=== PATIENT | female | born 1940 | race Caucasian/White ===

== ENCOUNTER 2018-08-28 13:06 | Emergency (ER) | payer OTHER ==
[2018-08-28] MEDS ORDERED: IBUPROFEN 600 MG TAB PO ONE ×2 (13:29)
[2018-08-28] MEDS ORDERED: IBUPROFEN 200 MG TAB PO ONE ×2 (13:32→13:34)
--- NOTE | 2018-08-28 13:33 | EDPHY ---
H & P Time Seen by Provider: 08/28/18 13:27 HPI/ROS: This patient fell on outstretched hand left side with wrist injury-pain to distal radius since she fell at [facility] 30 min prior to arrival. She explains that she was sitting on a chair and stood up abruptly up, her feet got tangled and she describes a mechanical fall. She denies any other injuries per besides the wrist. She describes 6/10 pain to that wrist a goes up to 8/10 with movement. No other exacerbating factors. She is accompanied by family member who drove her here for evaluation. She she has not had any analgesic or NSAID medications prior to arrival. ROS: Neuro: She did not strike her head. No numbness or tingling the affected extremity Musculoskeletal: No other extremity injuries Integumentary: No lacerations abrasions Pulmonary: No chest wall pain GI: No nausea vomiting or abdominal pain 7 point review of symptoms is performed and otherwise negative with exception of pertinent positives and negatives listed in HPI and ROS Smoking Status: Never smoked Physical Exam: Physical Exam Vital signs are normal. General: No acute distress HEENT: Atraumatic. Neck: Nontender Eyes: Pupils equal and react to light. Extraocular motions are intact. Lungs: No respiratory distress. No chest wall tenderness Cardiac: Brisk capillary refill is intact throughout. Pulses are 2+ and symmetric in the affected extremity. Skin: No rash or pallor. Extremities: Atraumatic normal except for left wrist left wrist: Patient has distal radial deformity and tenderness. No hand swelling or tenderness. Neuro: Alert and oriented x3 with no sensorimotor deficits in the affected extremity. Initial differential diagnosis: Distal radius fracture, scaphoid fracture, wrist sprain, traumatic hematoma Constitutional: Initial Vital Signs Heart Rate 56 L 08/28/18 13:13 Respiratory Rate 16 08/28/18 13:13 Blood Pressure 151/63 H 08/28/18 13:13 O2 Sat (%) 95 08/28/18 13:13 O2 Delivery Mode Room Air Allergies/Adverse Reactions: No Known Allergies Allergy (Unverified 08/28/18 13:19) Home Medications: Medication Instructions Recorded Lisinopril 08/28/18 Propranolol HCl 08/28/18 traMADol [Ultram 50 mg (*)] 50 - 100 mg PO Q4 PRN #12 tab 08/28/18 MDM/Departure - MDM Diagnostics: Wrist x-rays: Colles fracture with dorsal angulation by my interpretation nondisplaced intra-articular component to the radial fracture. Positive associated ulnar styloid fracture. Imaging Results: Imaging Impressions Wrist X-Ray 08/28/18 13:23 Impression: 1. Acute angulated impacted and displaced intra-articular distal radius fracture. 2. Minimally displaced acute ulnar styloid fracture. Imaging: I viewed and interpreted images myself Medications Given: Discontinued Medications Ibuprofen (Motrin) 400 mg PO EDNOW ONE Stop: 08/28/18 13:35 Last Admin: 08/28/18 13:35 Dose: 400 mg ED Course/Re-evaluation: Course: Ice and ibuprofen with partial relief I spoke with Otf, mid-level practitioner with Dr. Bedoya, orthopedic physician on-call. They would like to reduce the patient in their office tomorrow at 1: 00 p.m. [facility] orthopedics. Given that the patient is neurovascularly intact think it is reasonable to wait. Discussed this with the patient is comfortable with treatment plan. She is placed in [facility] she returns splint by our tech with my supervision and is neurovascular intact post splint application. So go home on ibuprofen Tylenol and tramadol as needed for pain that prevents sleep. - Depart Disposition: Home, Routine, Self-Care Clinical Impression: Colles' fracture of left radius Qualifiers: Encounter type: initial encounter Fracture type: closed Qualified Code(s): S52.532A - Colles' fracture of left radius, initial encounter for closed fracture Fracture of ulnar styloid Qualifiers: Encounter type: initial encounter Fracture type: closed Fracture alignment: displaced Laterality: left Qualified Code(s): S52.612A - Displaced fracture of left ulna styloid process, initial encounter for closed fracture Condition: Good Instructions: Wrist Fracture in Adults (ED) Additional Instructions: Diagnosis: Colles fracture left wrist with ulnar styloid fracture Plan: Splint at all times Sling when your up and about Ibuprofen Tylenol for pain Tramadol in addition if needed for pain that prevents sleep. No driving, alcohol work on tramadol Go to [facility] at [address] [place] [address], [address] tomorrow at 1 :00 p.m. For evaluation and treatment by Dr. Beodya Prescriptions: traMADol [Ultram 50 mg (*)] 50 - 100 mg PO Q4 PRN #12 tab PRN Reason: breakthrough pain Referrals: Archie Albrecht MD [Primary Care Provider] - As per Instructions Rusty Bedoya MD [Medical Doctor] - As per Instructions
[2018-08-28] MEDS ORDERED: traMADol 50 MG TAB PO ONE (14:33)
[2018-08-28 15:55] VITALS: BP 147/72
== END 2018-08-28 15:40 | disposition home or self-care (01) ==
LOC: CED 13:06
PROC: 2W3DX1Z Immobilization of Left Lower Arm using Splint (ICD-10-PCS; principal; 2018-08-28)
DX: S52.532A Colles' fracture of left radius, initial encounter for closed fracture (principal); S52.612A Displaced fracture of left ulna styloid process, initial encounter for closed fracture; W19.XXXA Unspecified fall, initial encounter; Y92.512 Supermarket, store or market as the place of occurrence of the external cause
CPT/HCPCS: 29125; 73110; 99283; A4565

== ENCOUNTER → 2018-11-06 | Outpatient (CLI) | payer OTHER | LOC: CIMAGING 09:58 | PROVIDERS: ATTEND Internal Medicine | DX: Z12.31 Encounter for screening mammogram for malignant neoplasm of breast (principal) ==